=== PATIENT | male | born 1935 | race Caucasian/White ===

== ENCOUNTER 2017-09-28 13:02 | Emergency (ER) | payer OTHER ==
[~2017-09-28] VITALS: Ht 170.2 cm; Wt 78.7 kg
[~2017-09-28 13:02] MED LIST: ATORVASTATIN CA40 MG PO; BENICAR HCT 401 EAC1 PO; CLOPIDOGREL75 MG PO; FENOFIBRATE200 M1 PO; FINASTERIDE5 MG PO; HYDROCHLOROTHIA25 MG PO; LO-DOSE ASPIRIN81 M1 PO; SERTRALINE HCL50 MG PO; TEMAZEPAM15 MG PO
[2017-09-28 14:49] LABS: BASOPHIL (%) 0.4 % (0-1); EOSINOPHIL (%) 2.4 % (0-5); EOSINOPHIL COUNT 0.2 K/uL (0-0.3); HEMATOCRIT 39.7 % (38.0-50.0); HEMOGLOBIN 13.8 G/DL (12.5-16.6); IMMATURE GRANULOCYTE (%) 0.1 % (0.0-0.7); LYMPHOCYTE (%) 16.5 % (15-42); LYMPHOCYTE COUNT 1.2 K/uL (1.0-2.8); MCH 31.3 PG (29.0-34.0); MCHC 34.8 G/DL (30.0-36.0); MONOCYTE (%) 10.6 % (3-12); MONOCYTE COUNT 0.8 K/uL (0-0.8); PLATELET COUNT 256 K/uL (156-360); RBC DIS.WIDTH-CV 13.8 % (11.8-14.6); RBC DIS.WIDTH-SD 45.6 % (39-53); RED BLOOD COUNT 4.41 M/uL (4.00-5.50); WHITE BLOOD COUNT 7.1 K/uL (4.1-10.2)
[2017-09-28 14:50] LABS: APPEARANCE CLEAR ((CLEAR)); BILIRUBIN NEGATIVE; BLOOD NEGATIVE; COLOR YELLOW ((YELLOW)); GLUCOSE (STRIP) NEGATIVE; KETONES NEGATIVE; LEUKOCYTES NEGATIVE; NITRITE NEGATIVE; PROTEIN (STRIP) NEGATIVE; UCUL ADDED? NO; UROBILINOGEN 0.2 MG/DL (0.2-1.0)
[2017-09-28 14:57] LABS: ALBUMIN 4.4 g/dL (3.2-4.8); CHLORIDE 107 mEq/L (99-109); POTASSIUM 3.6 mEq/L (3.7-5.4); SODIUM 138 mEq/L (136-147)
[2017-09-28 15:00] LABS: GLUCOSE 141 mg/dL (70-99); TOTAL PROTEIN 7.3 g/dL (6.4-8.3)
[2017-09-28 15:02] LABS: TOTAL BILIRUBIN 0.6 mg/dL (0.0-1.0)
[2017-09-28 15:03] LABS: ALKALINE PHOSPHATASE 51 IU/L (3-129); GFR ESTIMATE (CALCULATED) > 59 mL/min/ (58.99-99999)
[2017-09-28 15:04] LABS: UREA NITROGEN (BUN) 32 mg/dL (9-23)
[2017-09-28 15:05] LABS: AST (GOT) 26 IU/L (2-34)
[2017-09-28 15:06] LABS: ALT (GPT) 26 IU/L (3-49)
[2017-09-28 15:07] LABS: LIPASE 9 U/L (1.0-51.0)
[2017-09-28] MEDS ORDERED: ZOFRAN4 MG PO (16:10)
[2017-09-28] MEDS ORDERED: TORADOL10 MG PO (16:11)
[2017-09-28 16:22] VITALS: BP 137/102
== END 2017-09-28 16:43 | disposition home or self-care (01) ==
LOC: EME 13:02
PROVIDERS: Emergency Medicine
DX: N20.0 Calculus of kidney (principal); I10 Essential (primary) hypertension; E78.5 Hyperlipidemia, unspecified; F32.9 Major depressive disorder, single episode, unspecified; Z86.73 Personal history of transient ischemic attack (TIA), and cerebral infarction without residual deficits; Z79.82 Long term (current) use of aspirin
CPT/HCPCS: 74176; 80053; 81003; 83690; 85025; 99281; 99285; J1885; J2405; J3010; J7030